=== PATIENT | male | born 1935 | race Caucasian/White ===

== ENCOUNTER 2017-12-22 14:37 | Emergency (ER) | payer MEDICARE, OTHER ==
[2017-12-22 17:20] LABS: ADD MAN DIFF? NO
[2017-12-22 17:21] LABS: WHITE BLOOD COUNT 9.4 10^3/ul (4.8-10.8)
[2017-12-22 17:21] LABS: ABNORMAL IP MESSAGE 1; BASOPHIL # 0.1 10^3/ul (0.0-0.1); BASOPHILS % 0.7 % (0.0-2.0); EOSINOPHILS # 0.2 10^3/ul (0.0-0.5); EOSINOPHILS % 1.7 % (0.0-7.0); HEMATOCRIT 29.1 % (42.0-52.0); HEMOGLOBIN 7.9 g/dl (14.0-18.0); LYMPHOCYTES # 2.2 10^3/ul (0.8-2.9); LYMPHOCYTES % 23.2 % (15.0-51.0); MEAN CORPUSCULAR HEMOGLOBIN 19.1 pg (29.0-33.0); MEAN CORPUSCULAR HGB CONC 27.1 g/dl (32.0-37.0); MEAN CORPUSCULAR VOLUME 70.5 fl (82.0-101.0); MEAN PLATELET VOLUME 9.4 fl (7.4-10.4); MONOCYTE # 0.8 10^3/ul (0.3-0.9); MONOCYTES % 8.6 % (0.0-11.0); NEUTROPHIL # 6.1 10^3/ul (1.6-7.5); NEUTROPHILS % 65.4 % (39.0-77.0); PLATELET COUNT 324 10^3/UL (140-415); POSITIVE DIFF @See below; RED BLOOD COUNT 4.13 10^6/ul (4.70-6.10); RED CELL DISTRIBUTION WIDTH 21.8 % (11.5-14.5)
[2017-12-22] MEDS: CEFTRIAXONE 1 GM/50 ML (PMX) 50 ML IVPB (17:26)
[2017-12-22 17:41] LABS: ALANINE AMINOTRANSFERASE 23 IU/L (13-69); ALBUMIN/GLOBULIN RATIO 1.08; ALKALINE PHOSPHATASE 70 IU/L (42-121); ANION GAP 20 (8-16); ASPARTATE AMINO TRANSFERASE 36 IU/L (15-46); BILIRUBIN,INDIRECT 0.2 mg/dl (0-1.1); BILIRUBIN,TOTAL 0.2 mg/dl (0.2-1.3); BLOOD UREA NITROGEN 26 mg/dl (7-20); CALCIUM 9.1 mg/dl (8.4-10.2); CARBON DIOXIDE 23 mmol/L (21-31); CHLORIDE 110 mmol/L (97-110); CREATININE 1.45 mg/dl (0.61-1.24); GLUCOSE 160 mg/dl (70-220); SODIUM 148 mmol/L (135-144); TOTAL PROTEIN 7.7 g/dl (6.1-8.1)
[2017-12-22 17:46] LABS: POTASSIUM 5.4 mmol/L (3.5-5.1)
[2017-12-22] MEDS: SOD CHLORIDE 0.9% 500 ML IV (18:50)
== END 2017-12-22 21:56 | disposition home or self-care (01) ==
LOC: FTE 14:37
DX: E11.621 Type 2 diabetes mellitus with foot ulcer (principal); L97.519 Non-pressure chronic ulcer of other part of right foot with unspecified severity; I73.9 Peripheral vascular disease, unspecified; I10 Essential (primary) hypertension; I25.10 Atherosclerotic heart disease of native coronary artery without angina pectoris; J45.909 Unspecified asthma, uncomplicated; I50.9 Heart failure, unspecified; Z79.4 Long term (current) use of insulin; Z87.891 Personal history of nicotine dependence
CPT/HCPCS: 73630; 80053; 85025; 93926; 96365; 96366; 99285-25

== ENCOUNTER 2018-01-06 13:58 | Inpatient (IN) | payer MEDICARE, OTHER ==
[2018-01-06 14:56] LABS: ADD MAN DIFF? NO
[2018-01-06 15:06] LABS: ABNORMAL IP MESSAGE 1; BASOPHIL # 0.1 10^3/ul (0.0-0.1); BASOPHILS % 0.8 % (0.0-2.0); EOSINOPHILS # 0.2 10^3/ul (0.0-0.5); EOSINOPHILS % 2.3 % (0.0-7.0); HEMATOCRIT 28.1 % (42.0-52.0); HEMOGLOBIN 7.6 g/dl (14.0-18.0); LYMPHOCYTES # 1.6 10^3/ul (0.8-2.9); LYMPHOCYTES % 22.4 % (15.0-51.0); MEAN CORPUSCULAR HEMOGLOBIN 18.8 pg (29.0-33.0); MEAN CORPUSCULAR VOLUME 69.6 fl (82.0-101.0); MEAN PLATELET VOLUME 9.2 fl (7.4-10.4); MONOCYTE # 0.6 10^3/ul (0.3-0.9); MONOCYTES % 8.2 % (0.0-11.0); NEUTROPHIL # 4.8 10^3/ul (1.6-7.5); NEUTROPHILS % 65.8 % (39.0-77.0); NUCLEATED RED BLOOD CELLS% 0.3 /100WBC (0.0-0.0); PLATELET COUNT 296 10^3/UL (140-415); POSITIVE DIFF @See below; RED BLOOD COUNT 4.04 10^6/ul (4.70-6.10); RED CELL DISTRIBUTION WIDTH 21.1 % (11.5-14.5)
[2018-01-06 15:06] LABS: WHITE BLOOD COUNT 7.3 10^3/ul (4.8-10.8)
[2018-01-06] MEDS: SOD CHLORIDE 0.9% 1,000 ML IV (15:07)
[2018-01-06 15:08] LABS: ADD UMIC NO; UR ASCORBIC ACID NEGATIVE (NEGATIVE); UR BILIRUBIN (Dip) NEGATIVE (NEGATIVE); UR BLOOD (Dip) NEGATIVE (NEGATIVE); UR CLARITY CLEAR (CLEAR); UR COLOR STRAW (YELLOW); UR GLUCOSE (Dip) 3+ mg/dL (NEGATIVE); UR KETONES (Dip) NEGATIVE (NEGATIVE); UR LEUKOCYTE ESTERASE (Dip) NEGATIVE Leu/ul (NEGATIVE); UR NITRITE (Dip) NEGATIVE (NEGATIVE); UR TOTAL PROTEIN (Dip) NEGATIVE (NEGATIVE); UR UROBILINOGEN (Dip) NEGATIVE (NEGATIVE)
[2018-01-06 15:22] LABS: ANION GAP 13 (8-16); BLOOD UREA NITROGEN 20 mg/dl (7-20); CARBON DIOXIDE 23 mmol/L (21-31); CHLORIDE 110 mmol/L (97-110); CREATININE 1.72 mg/dl (0.61-1.24); GLUCOSE 318 mg/dl (70-220); POTASSIUM 4.5 mmol/L (3.5-5.1)
[2018-01-06 15:23] LABS: INR 1.64; PROTIME 19.8 Sec (11.9-14.9); PT RATIO 1.5
[2018-01-06 15:24] LABS: PARTIAL THROMBOPLASTIN TIME 50.6 Sec (25.0-35.0)
[2018-01-06 15:26] LABS: SODIUM 141 mmol/L (135-144)
[2018-01-06] MEDS: PIPER-TAZO 3.375 GM IV (PMX) 100 ML IVPB (15:57)
[2018-01-06] MEDS: VANCOMYCIN 1 GM (PMX) 250 ML IVPB (16:43)
[2018-01-06] MEDS: morphine 2 MG INJ IV (17:38)
[2018-01-06] MEDS ORDERED: HYDROCODONE/APAP (5/325) TAB PO (18:00)
[2018-01-06] MEDS ORDERED: morphine 2 MG INJ IV (18:00)
[2018-01-06] MEDS ORDERED: DEXTROSE 50% 50 ML SYRINGE IV ×2 (18:00)
[2018-01-06] MEDS: PANTOPRAZOLE (EC) 40 MG TAB PO (18:00)
[2018-01-06] MEDS ORDERED: DOCUSATE SODIUM 100 MG CAP PO (18:00)
[2018-01-06] MEDS ORDERED: NACL 0.9% 3 ML SYG IV (18:00)
[2018-01-06] MEDS ORDERED: ACETAMINOPHEN 325 MG TAB PO (18:00)
[2018-01-06] MEDS ORDERED: GLUCOSE GEL 15 GRAM TUBE BUCCAL (18:00)
[2018-01-06] MEDS ORDERED: MAGNESIUM HYDROXIDE 30ML CUP PO (18:00)
[2018-01-06] MEDS ORDERED: ONDANSETRON 4 MG INJ IV (18:00)
[2018-01-06] MEDS ORDERED: GLUCOSE GEL 15 GRAM TUBE PO ×2 (18:00)
[2018-01-06] MEDS ORDERED: GLUCAGON 1 MG INJ IM (18:00)
[2018-01-06 18:20] LABS: HEMOGLOBIN A1C 8.5 % (0-5.9)
[2018-01-06] MEDS: PIPER-TAZO 2.25 GM (PMX) 50 ML IVPB (22:52)
[2018-01-06] MEDS: ATORVASTATIN 40 MG TAB PO (22:52)
[2018-01-06] MEDS: DEXTROSE 5%-0.45% NACL 1,000 ML IV (22:52)
[2018-01-06] MEDS: DOCUSATE SODIUM 250 MG CAP PO (22:53)
[2018-01-06] MEDS: INSULIN GLARGINE [LANtus] 3 ML PEN SC (22:55)
[2018-01-06] MEDS: INSULIN ASPART [NOVOLOG] 3 ML PEN SC (22:58)
[2018-01-07 06:04] LABS: ADD MAN DIFF? NO
[2018-01-07 06:05] LABS: WHITE BLOOD COUNT 7.2 10^3/ul (4.8-10.8)
[2018-01-07 06:05] LABS: ABNORMAL IP MESSAGE 1; BASOPHIL # 0.1 10^3/ul (0.0-0.1); BASOPHILS % 0.8 % (0.0-2.0); EOSINOPHILS # 0.2 10^3/ul (0.0-0.5); EOSINOPHILS % 2.8 % (0.0-7.0); HEMATOCRIT 25.8 % (42.0-52.0); HEMOGLOBIN 7.1 g/dl (14.0-18.0); LYMPHOCYTES % 27.5 % (15.0-51.0); MEAN CORPUSCULAR HEMOGLOBIN 19.3 pg (29.0-33.0); MEAN CORPUSCULAR HGB CONC 27.5 g/dl (32.0-37.0); MEAN CORPUSCULAR VOLUME 70.1 fl (82.0-101.0); MEAN PLATELET VOLUME 9.8 fl (7.4-10.4); MONOCYTE # 0.7 10^3/ul (0.3-0.9); MONOCYTES % 9.9 % (0.0-11.0); NEUTROPHIL # 4.2 10^3/ul (1.6-7.5); NEUTROPHILS % 58.6 % (39.0-77.0); PLATELET COUNT 276 10^3/UL (140-415); POSITIVE DIFF @See below; RED BLOOD COUNT 3.68 10^6/ul (4.70-6.10); RED CELL DISTRIBUTION WIDTH 20.8 % (11.5-14.5)
[2018-01-07] MEDS: PIPER-TAZO 2.25 GM (PMX) 50 ML IVPB ×3 (06:26→22:50)
[2018-01-07] MEDS: PANTOPRAZOLE (EC) 40 MG TAB PO ×2 (06:26→17:05)
[2018-01-07 06:27] LABS: ALANINE AMINOTRANSFERASE 16 IU/L (13-69); ALKALINE PHOSPHATASE 57 IU/L (42-121); ANION GAP 9 (8-16); ASPARTATE AMINO TRANSFERASE 32 IU/L (15-46); BILIRUBIN,INDIRECT 0.2 mg/dl (0-1.1); BILIRUBIN,TOTAL 0.2 mg/dl (0.2-1.3); BLOOD UREA NITROGEN 19 mg/dl (7-20); CARBON DIOXIDE 24 mmol/L (21-31); CHLORIDE 115 mmol/L (97-110); CREATININE 1.42 mg/dl (0.61-1.24); GLUCOSE 91 mg/dl (70-220); MAGNESIUM 2.1 mg/dl (1.7-2.5); POTASSIUM 3.9 mmol/L (3.5-5.1); SODIUM 144 mmol/L (135-144)
[2018-01-07] MEDS: DEXTROSE 5%-0.45% NACL 1,000 ML IV ×2 (07:20→21:48)
[2018-01-07] MEDS: INSULIN ASPART [NOVOLOG] 3 ML PEN SC ×4 (08:15→21:00)
[2018-01-07] MEDS: FLUTICASONE/VILANTEROL 200-25 INH DEVICE INH (08:21)
[2018-01-07] MEDS: DOCUSATE SODIUM 250 MG CAP PO ×2 (08:21→21:00)
[2018-01-07] MEDS: NIFEdipine (XL) 30 MG TAB PO (08:22)
[2018-01-07] MEDS: FERROUS SULFATE (EC) 325 MG TAB PO (08:22)
[2018-01-07 14:39] LABS: IMMEDIATE SPIN CROSSMATCH 1 1
[2018-01-07] MEDS ORDERED: morphine LIQ (10 MG/5 ML) CUP PO (15:00)
[2018-01-07] MEDS ORDERED: PROPOFOL 20 ML (19:15)
[2018-01-07] MEDS ORDERED: CEFAZOLIN 1 GM INJ (19:15)
[2018-01-07] MEDS: LIDOCAINE 1% (MPF) 30 ML INJ (19:20)
[2018-01-07] MEDS ORDERED: MIDAZOLAM 1 MG/ML 2 ML INJ IV (19:30)
[2018-01-07] MEDS ORDERED: EPHEDrine SULFATE 50 MG/5 ML SYG IV ×2 (19:30→20:00)
[2018-01-07] MEDS ORDERED: DIPHENHYDRAMINE 50 MG INJ IV ×2 (19:30→20:00)
[2018-01-07] MEDS ORDERED: ONDANSETRON 4 MG INJ IV ×2 (19:30→20:00)
[2018-01-07] MEDS ORDERED: FENTAnyl 50 MCG/ML VIAL IV ×5 (19:30→20:00)
[2018-01-07] MEDS ORDERED: MEPERIDINE 25 MG INJ IV ×2 (19:30→20:00)
[2018-01-07] MEDS ORDERED: OXYCODONE/ACETAMINOPHEN (5/325) TAB PO ×3 (19:30→20:00)
[2018-01-07] MEDS ORDERED: hydrALAzine 20 MG INJ IV ×2 (19:30→20:00)
[2018-01-07] MEDS ORDERED: LABETALOL HCL 20MG INJ IV ×2 (19:30→20:00)
[2018-01-07] MEDS ORDERED: METOCLOPRAMIDE 10 MG INJ IV ×2 (19:30→20:00)
[2018-01-07] MEDS ORDERED: METOCLOPRAMIDE 10 MG INJ (19:42)
[2018-01-07] MEDS ORDERED: DEXAMETHASONE 4 MG/ML 1 ML INJ (19:42)
[2018-01-07] MEDS ORDERED: ONDANSETRON 4 MG INJ (19:42)
[2018-01-07] MEDS: DEXAMETHASONE 4 MG/ML 1 ML INJ (19:50)
[2018-01-07] MEDS: BUPIVACAINE 0.5% (SDV) 30 ML INJ (19:50)
[2018-01-07] MEDS ORDERED: HYDROmorphONE 1 MG/5 ML IV SYRINGE IV ×2 (20:00)
[2018-01-07] MEDS: ATORVASTATIN 40 MG TAB PO (21:00)
[2018-01-07] MEDS: INSULIN GLARGINE [LANtus] 3 ML PEN SC (21:53)
[2018-01-08] MEDS: PIPER-TAZO 2.25 GM (PMX) 50 ML IVPB ×3 (05:42→21:22)
[2018-01-08] MEDS: PANTOPRAZOLE (EC) 40 MG TAB PO ×2 (05:42→18:43)
[2018-01-08 06:50] LABS: ALBUMIN 3.4 g/dl (3.3-4.9); ANION GAP 10 (8-16); BLOOD UREA NITROGEN 17 mg/dl (7-20); CALCIUM 9.2 mg/dl (8.4-10.2); CARBON DIOXIDE 23 mmol/L (21-31); CHLORIDE 111 mmol/L (97-110); CREATININE 1.32 mg/dl (0.61-1.24); GLUCOSE 245 mg/dl (70-220); MAGNESIUM 1.9 mg/dl (1.7-2.5); PHOSPHORUS 4.1 mg/dl (2.5-4.9); POTASSIUM 4.4 mmol/L (3.5-5.1); SODIUM 140 mmol/L (135-144)
[2018-01-08] MEDS: DOCUSATE SODIUM 250 MG CAP PO ×2 (09:29→21:23)
[2018-01-08] MEDS: NIFEdipine (XL) 30 MG TAB PO (09:30)
[2018-01-08] MEDS: FLUTICASONE/VILANTEROL 200-25 INH DEVICE INH (09:30)
[2018-01-08] MEDS: FERROUS SULFATE (EC) 325 MG TAB PO (09:30)
[2018-01-08] MEDS: INSULIN ASPART [NOVOLOG] 3 ML PEN SC ×4 (09:36→21:29)
[2018-01-08] MEDS: DEXTROSE 5%-0.45% NACL 1,000 ML IV (10:00)
[2018-01-08] MEDS: ATORVASTATIN 40 MG TAB PO (21:23)
[2018-01-08] MEDS: INSULIN GLARGINE [LANtus] 3 ML PEN SC (21:30)
[2018-01-09] MEDS: PIPER-TAZO 2.25 GM (PMX) 50 ML IVPB ×2 (05:49→13:43)
[2018-01-09] MEDS: PANTOPRAZOLE (EC) 40 MG TAB PO (05:49)
[2018-01-09 05:52] LABS: ABNORMAL IP MESSAGE 1; ADD MAN DIFF? NO; BASOPHIL # 0.1 10^3/ul (0.0-0.1); BASOPHILS % 0.7 % (0.0-2.0); EOSINOPHILS # 0.1 10^3/ul (0.0-0.5); EOSINOPHILS % 0.6 % (0.0-7.0); HEMATOCRIT 29.2 % (42.0-52.0); HEMOGLOBIN 8.4 g/dl (14.0-18.0); LYMPHOCYTES # 2.5 10^3/ul (0.8-2.9); LYMPHOCYTES % 25.8 % (15.0-51.0); MEAN CORPUSCULAR HEMOGLOBIN 20.1 pg (29.0-33.0); MEAN CORPUSCULAR HGB CONC 28.8 g/dl (32.0-37.0); MEAN PLATELET VOLUME 9.6 fl (7.4-10.4); MONOCYTE # 0.9 10^3/ul (0.3-0.9); MONOCYTES % 9.6 % (0.0-11.0); NEUTROPHIL # 6.1 10^3/ul (1.6-7.5); PLATELET COUNT 317 10^3/UL (140-415); POSITIVE DIFF @See below; RED BLOOD COUNT 4.17 10^6/ul (4.70-6.10); RED CELL DISTRIBUTION WIDTH 21.2 % (11.5-14.5)
[2018-01-09 05:52] LABS: WHITE BLOOD COUNT 9.7 10^3/ul (4.8-10.8)
[2018-01-09 06:16] LABS: ANION GAP 10 (8-16); BLOOD UREA NITROGEN 26 mg/dl (7-20); CALCIUM 9.5 mg/dl (8.4-10.2); CARBON DIOXIDE 26 mmol/L (21-31); CHLORIDE 111 mmol/L (97-110); CREATININE 1.39 mg/dl (0.61-1.24); GLUCOSE 89 mg/dl (70-220); POTASSIUM 4.2 mmol/L (3.5-5.1); SODIUM 143 mmol/L (135-144)
[2018-01-09 06:19] LABS: ALBUMIN 3.2 g/dl (3.3-4.9); ANION GAP 9 (8-16); BLOOD UREA NITROGEN 25 mg/dl (7-20); CALCIUM 9.5 mg/dl (8.4-10.2); CARBON DIOXIDE 26 mmol/L (21-31); CHLORIDE 112 mmol/L (97-110); CREATININE 1.44 mg/dl (0.61-1.24); GLUCOSE 93 mg/dl (70-220); PHOSPHORUS 3.2 mg/dl (2.5-4.9); POTASSIUM 3.9 mmol/L (3.5-5.1); SODIUM 143 mmol/L (135-144)
[2018-01-09] MEDS: HYDROCODONE/APAP (5/325) TAB PO ×2 (06:54→15:13)
[2018-01-09] MEDS: INSULIN ASPART [NOVOLOG] 3 ML PEN SC ×2 (08:15→12:15)
[2018-01-09] MEDS: DOCUSATE SODIUM 250 MG CAP PO (08:25)
[2018-01-09] MEDS: NIFEdipine (XL) 30 MG TAB PO (08:25)
[2018-01-09] MEDS: FERROUS SULFATE (EC) 325 MG TAB PO (08:26)
[2018-01-09] MEDS: FLUTICASONE/VILANTEROL 200-25 INH DEVICE INH (08:26)
== END 2018-01-09 16:35 | disposition home health service (06) | DRG 256 ==
LOC: E/R 13:58 → MS2 19:53
PROC: 0Y6P0Z0 Detachment at Right 1st Toe, Complete, Open Approach (ICD-10-PCS; principal; 2018-01-07 18:30)
PROC: 0Y6R0Z0 Detachment at Right 2nd Toe, Complete, Open Approach (ICD-10-PCS; 2018-01-07 18:30)
PROC: 30233N1 Transfusion of Nonautologous Red Blood Cells into Peripheral Vein, Percutaneous Approach (ICD-10-PCS; 2018-01-07 19:15)
DX: E11.52 Type 2 diabetes mellitus with diabetic peripheral angiopathy with gangrene (principal); N17.9 Acute kidney failure, unspecified; E11.65 Type 2 diabetes mellitus with hyperglycemia; I25.10 Atherosclerotic heart disease of native coronary artery without angina pectoris; Z95.1 Presence of aortocoronary bypass graft; I48.91 Unspecified atrial fibrillation; I12.9 Hypertensive chronic kidney disease with stage 1 through stage 4 chronic kidney disease, or unspecified chronic kidney disease; E11.22 Type 2 diabetes mellitus with diabetic chronic kidney disease; D63.1 Anemia in chronic kidney disease; E78.5 Hyperlipidemia, unspecified; N18.3 Chronic kidney disease, stage 3 (moderate); Z79.84 Long term (current) use of oral hypoglycemic drugs; Z79.02 Long term (current) use of antithrombotics/antiplatelets; Z79.4 Long term (current) use of insulin; Z95.810 Presence of automatic (implantable) cardiac defibrillator
CPT/HCPCS: 36415; 36430; 80048; 80053; 80069; 81003; 82962; 83036; 83735; 85025; 85610; 85730; 86850; 86900; 86901; 86920; 88302; 88311; 96374; 96375; 99285-25

== ENCOUNTER 2018-02-19 12:21 | Inpatient (IN) | payer MEDICARE, OTHER ==
[2018-02-19] MEDS ORDERED: ONDANSETRON 4 MG INJ IV ×2 (15:30→17:00)
[2018-02-19] MEDS ORDERED: ACETAMINOPHEN 325 MG TAB PO ×2 (15:30→17:00)
[2018-02-19] MEDS: PIPER-TAZO 3.375 GM IV (PMX) 100 ML IVPB (15:53)
[2018-02-19] MEDS: SODIUM CHLORIDE 0.9% 1L BAG IV* (15:53)
[2018-02-19 16:22] LABS: ALANINE AMINOTRANSFERASE 26 IU/L (13-69); ALBUMIN/GLOBULIN RATIO 1.11; ALKALINE PHOSPHATASE 66 IU/L (42-121); ANION GAP 13 (8-16); ASPARTATE AMINO TRANSFERASE 22 IU/L (15-46); BILIRUBIN,INDIRECT 0.4 mg/dl (0-1.1); BILIRUBIN,TOTAL 0.4 mg/dl (0.2-1.3); BLOOD UREA NITROGEN 24 mg/dl (7-20); CARBON DIOXIDE 18 mmol/L (21-31); CHLORIDE 121 mmol/L (97-110); CREATININE 1.57 mg/dl (0.61-1.24); GLUCOSE 92 mg/dl (70-220); INR 1.56; POTASSIUM 5.8 mmol/L (3.5-5.1); PT RATIO 1.5; SODIUM 146 mmol/L (135-144); TOTAL PROTEIN 7.6 g/dl (6.1-8.1)
[2018-02-19 16:23] LABS: PARTIAL THROMBOPLASTIN TIME 54.1 Sec (25.0-35.0)
[2018-02-19 16:24] LABS: LACTIC ACID 0.8 mmol/L (0.5-2.0)
[2018-02-19 16:33] LABS: TROPONIN-I 0.013 ng/ml (0.000-0.120)
[2018-02-19] MEDS: VANCOMYCIN 1 GM (PMX) 250 ML IVPB (16:34)
[2018-02-19 16:35] LABS: WHITE BLOOD COUNT 7.3 10^3/ul (4.8-10.8)
[2018-02-19 16:35] LABS: ABNORMAL IP MESSAGE 1; HEMOGLOBIN 10.7 g/dl (14.0-18.0); MEAN CORPUSCULAR HGB CONC 29.8 g/dl (32.0-37.0); MEAN CORPUSCULAR VOLUME 82.2 fl (82.0-101.0); MEAN PLATELET VOLUME 9.7 fl (7.4-10.4); PLATELET COUNT 297 10^3/UL (140-415); POSITIVE DIFF @See below; RED BLOOD COUNT 4.37 10^6/ul (4.70-6.10)
[2018-02-19 16:38] LABS: ADD MAN DIFF? YES; HEMATOCRIT 35.9 % (42.0-52.0); MEAN CORPUSCULAR HEMOGLOBIN 24.5 pg (29.0-33.0)
[2018-02-19 16:56] LABS: ADD UMIC YES; UR ASCORBIC ACID NEGATIVE (NEGATIVE); UR BILIRUBIN (Dip) NEGATIVE (NEGATIVE); UR BLOOD (Dip) 1+ mg/dL (NEGATIVE); UR CLARITY SLIGHTLY CLOUDY (CLEAR); UR COLOR YELLOW (YELLOW); UR GLUCOSE (Dip) 3+ mg/dL (NEGATIVE); UR KETONES (Dip) NEGATIVE (NEGATIVE); UR LEUKOCYTE ESTERASE (Dip) 2+ Leu/ul (NEGATIVE); UR NITRITE (Dip) NEGATIVE (NEGATIVE); UR RBC 2 /HPF (0-5); UR SPECIFIC GRAVITY (Dip) 1.012 (1.003-1.030); UR TOTAL PROTEIN (Dip) NEGATIVE (NEGATIVE); UR UROBILINOGEN (Dip) NEGATIVE (NEGATIVE); UR WBC 10 /HPF (0-5)
[2018-02-19] MEDS ORDERED: NACL 0.9% 3 ML SYG IV (17:00)
[2018-02-19] MEDS ORDERED: DOCUSATE SODIUM 100 MG CAP PO (17:00)
[2018-02-19 17:30] LABS: ANISOCYTOSIS 1+ (0-0); BAND NEUTROPHILS #M 0.5 10^3/ul (0.0-0.6); BAND NEUTROPHILS % (M) 7 % (0-4); EOSINOPHILS % (M) 2 % (0-7); GIANT THROMBO% (M) 1 % (0-0); HYPOCHROMASIA 1+ (0-0); LYMPHOCYTES #M 0.2 10^3/ul (0.8-2.9); LYMPHOCYTES % (M) 4 % (15-51); METAMYELOCYTES %M 1 % (0-0); MICROCYTOSIS 1+ (0-0); MONOCYTE #M 1.6 10^3/ul (0.3-0.9); MONOCYTES % (M) 22 % (0-11); MYELOCYTES % (M) 1 % (0-0); OVALOCYTES 1+ (0-0); PLATELET ESTIMATE NORMAL; POIKILOCYTOSIS 2+ (0-0); POLYCHROMASIA 1+ (0-0); REACTIVE LYMPHOCYTES #M 0.4 10^3/ul (0.0-0.0); REACTIVE LYMPHOCYTES% (M) 6 % (0-0); SEG NEUT #M 4.2 10^3/ul (1.6-7.5); SEGMENTED NEUTROPHILS (M) % 57 % (39-77); SMUDGE%M 3 % (0-0)
[2018-02-19] MEDS ORDERED: RIVAROXABAN 20 MG TABLET PO (18:00)
[2018-02-19] MEDS: PANTOPRAZOLE (EC) 40 MG TAB PO (18:32)
[2018-02-19] MEDS ORDERED: DEXTROSE 50% 50 ML SYRINGE IV ×2 (19:30)
[2018-02-19] MEDS ORDERED: GLUCOSE GEL 15 GRAM TUBE BUCCAL (19:30)
[2018-02-19] MEDS ORDERED: GLUCOSE GEL 15 GRAM TUBE PO ×2 (19:30)
[2018-02-19] MEDS ORDERED: GLUCAGON 1 MG INJ IM (19:30)
[2018-02-19 19:48] LABS: LACTIC ACID 0.7 mmol/L (0.5-2.0)
[2018-02-19] MEDS: INSULIN ASPART [NOVOLOG] 3 ML PEN SC (21:00)
[2018-02-19] MEDS: ATORVASTATIN 80 MG TAB PO (22:21)
[2018-02-19] MEDS: RANITIDINE 150 MG TAB PO (22:21)
[2018-02-19] MEDS: HEPARIN 5,000 UNIT/0.5 ML VIAL SC (22:30)
[2018-02-19] MEDS: INSULIN GLARGINE [LANTus] (100 UNITS/ML) SYG SC (22:44)
[2018-02-19 23:23] LABS: LACTIC ACID 1.1 mmol/L (0.5-2.0)
[2018-02-20] MEDS: PIPER-TAZO 3.375 GM IV (PMX) 100 ML IVPB ×4 (00:29→18:00)
[2018-02-20] MEDS: ACCU-CHEK XX ×2 (02:00→22:51)
[2018-02-20 06:53] LABS: ADD MAN DIFF? NO
[2018-02-20 06:55] LABS: ABNORMAL IP MESSAGE 1; BASOPHIL # 0.1 10^3/ul (0.0-0.1); BASOPHILS % 0.9 % (0.0-2.0); EOSINOPHILS # 0.2 10^3/ul (0.0-0.5); EOSINOPHILS % 3.1 % (0.0-7.0); HEMATOCRIT 33.7 % (42.0-52.0); HEMOGLOBIN 9.9 g/dl (14.0-18.0); LYMPHOCYTES # 1.2 10^3/ul (0.8-2.9); LYMPHOCYTES % 18.1 % (15.0-51.0); MEAN CORPUSCULAR HEMOGLOBIN 23.8 pg (29.0-33.0); MEAN CORPUSCULAR HGB CONC 29.4 g/dl (32.0-37.0); MEAN PLATELET VOLUME 9.4 fl (7.4-10.4); MONOCYTE # 0.6 10^3/ul (0.3-0.9); MONOCYTES % 9.3 % (0.0-11.0); NEUTROPHIL # 4.4 10^3/ul (1.6-7.5); NEUTROPHILS % 67.5 % (39.0-77.0); PLATELET COUNT 286 10^3/UL (140-415); POSITIVE DIFF @See below; RED BLOOD COUNT 4.16 10^6/ul (4.70-6.10)
[2018-02-20 06:55] LABS: WHITE BLOOD COUNT 6.5 10^3/ul (4.8-10.8)
[2018-02-20 07:15] LABS: ANION GAP 13 (8-16); BLOOD UREA NITROGEN 20 mg/dl (7-20); CALCIUM 9.7 mg/dl (8.4-10.2); CARBON DIOXIDE 18 mmol/L (21-31); CHLORIDE 119 mmol/L (97-110); CREATININE 1.43 mg/dl (0.61-1.24); GLUCOSE 52 mg/dl (70-220); POTASSIUM 4.8 mmol/L (3.5-5.1); SODIUM 145 mmol/L (135-144)
[2018-02-20] MEDS: INSULIN ASPART [NOVOLOG] 3 ML PEN SC ×4 (07:55→21:00)
[2018-02-20] MEDS: PANTOPRAZOLE (EC) 40 MG TAB PO ×2 (08:19→18:09)
[2018-02-20] MEDS: FERROUS SULFATE (EC) 325 MG TAB PO (08:20)
[2018-02-20] MEDS: COLLAGENASE 5 GM (UD JAR) TOP (08:20)
[2018-02-20] MEDS: NIFEdipine (XL) 30 MG TAB PO (08:20)
[2018-02-20] MEDS: TAMSULOSIN (SR) 0.4 MG CAP PO (08:20)
[2018-02-20] MEDS: HEPARIN 5,000 UNIT/0.5 ML VIAL SC ×3 (08:29→22:45)
[2018-02-20] MEDS: ARFORMOTEROL TARTRATE 15MCG/2 ML AMP INH ×2 (09:02→19:17)
[2018-02-20] MEDS: BUDESONIDE (NEB) 0.5MG/2ML AMP INH ×2 (09:02→19:17)
[2018-02-20] MEDS ORDERED: VANCOMYCIN IV PER PHARMACY XX (16:00)
[2018-02-20] MEDS: VANCOMYCIN 1 GM 250 ML IVPB (19:41)
[2018-02-20] MEDS: oxyCODONE 5 MG TAB PO (20:11)
[2018-02-20] MEDS: RANITIDINE 150 MG TAB PO (22:31)
[2018-02-20] MEDS: ATORVASTATIN 80 MG TAB PO (22:32)
[2018-02-20] MEDS: INSULIN GLARGINE [LANTus] (100 UNITS/ML) SYG SC (22:44)
[2018-02-21] MEDS: PIPER-TAZO 3.375 GM IV (PMX) 100 ML IVPB ×3 (00:27→12:01)
[2018-02-21] MEDS: INSULIN ASPART [NOVOLOG] 3 ML PEN SC ×4 (07:55→20:22)
[2018-02-21] MEDS: TAMSULOSIN (SR) 0.4 MG CAP PO (08:28)
[2018-02-21] MEDS: COLLAGENASE 5 GM (UD JAR) TOP (08:28)
[2018-02-21] MEDS: FERROUS SULFATE (EC) 325 MG TAB PO (08:28)
[2018-02-21] MEDS: PANTOPRAZOLE (EC) 40 MG TAB PO ×2 (08:28→16:57)
[2018-02-21] MEDS: NIFEdipine (XL) 30 MG TAB PO (08:29)
[2018-02-21] MEDS: HEPARIN 5,000 UNIT/0.5 ML VIAL SC ×3 (08:39→20:23)
[2018-02-21] MEDS: ARFORMOTEROL TARTRATE 15MCG/2 ML AMP INH ×2 (10:15→21:58)
[2018-02-21] MEDS: BUDESONIDE (NEB) 0.5MG/2ML AMP INH ×2 (10:16→21:42)
[2018-02-21 11:15] LABS: ADD MAN DIFF? NO
[2018-02-21 11:18] LABS: ABNORMAL IP MESSAGE 1; BASOPHIL # 0.1 10^3/ul (0.0-0.1); BASOPHILS % 0.7 % (0.0-2.0); EOSINOPHILS # 0.1 10^3/ul (0.0-0.5); EOSINOPHILS % 1.4 % (0.0-7.0); HEMATOCRIT 35.8 % (42.0-52.0); LYMPHOCYTES # 1.2 10^3/ul (0.8-2.9); LYMPHOCYTES % 17.3 % (15.0-51.0); MEAN CORPUSCULAR HEMOGLOBIN 24.7 pg (29.0-33.0); MEAN CORPUSCULAR HGB CONC 30.7 g/dl (32.0-37.0); MEAN CORPUSCULAR VOLUME 80.4 fl (82.0-101.0); MEAN PLATELET VOLUME 9.3 fl (7.4-10.4); MONOCYTE # 0.5 10^3/ul (0.3-0.9); MONOCYTES % 7.6 % (0.0-11.0); NEUTROPHILS % 72.1 % (39.0-77.0); PLATELET COUNT 300 10^3/UL (140-415); POSITIVE DIFF @See below; RED BLOOD COUNT 4.45 10^6/ul (4.70-6.10)
[2018-02-21 11:42] LABS: ANION GAP 13 (8-16); BLOOD UREA NITROGEN 17 mg/dl (7-20); CALCIUM 9.7 mg/dl (8.4-10.2); CARBON DIOXIDE 19 mmol/L (21-31); CHLORIDE 114 mmol/L (97-110); GLUCOSE 160 mg/dl (70-220); POTASSIUM 4.8 mmol/L (3.5-5.1); SODIUM 141 mmol/L (135-144)
[2018-02-21] MEDS: hydrALAzine 20 MG INJ IV (16:58)
[2018-02-21] MEDS: VANCOMYCIN 1 GM 250 ML IVPB (19:54)
[2018-02-21] MEDS: INSULIN GLARGINE [LANTus] (100 UNITS/ML) SYG SC (20:24)
[2018-02-21] MEDS: ATORVASTATIN 80 MG TAB PO (20:28)
[2018-02-21] MEDS: LOSARTAN 50 MG TAB PO (20:28)
[2018-02-21] MEDS: RANITIDINE 150 MG TAB PO (20:28)
[2018-02-21] MEDS: CEFEPIME 1GM/50 ML (PMX) 50 ML IVPB (22:22)
[2018-02-22] MEDS: ACCU-CHEK XX (02:00)
[2018-02-22 06:14] LABS: ADD MAN DIFF? NO
[2018-02-22 06:43] LABS: ABNORMAL IP MESSAGE 1; BASOPHIL # 0.1 10^3/ul (0.0-0.1); BASOPHILS % 0.7 % (0.0-2.0); EOSINOPHILS # 0.1 10^3/ul (0.0-0.5); EOSINOPHILS % 1.3 % (0.0-7.0); HEMATOCRIT 34.2 % (42.0-52.0); HEMOGLOBIN 10.4 g/dl (14.0-18.0); LYMPHOCYTES # 1.7 10^3/ul (0.8-2.9); LYMPHOCYTES % 24.9 % (15.0-51.0); MEAN CORPUSCULAR HEMOGLOBIN 24.5 pg (29.0-33.0); MEAN CORPUSCULAR HGB CONC 30.4 g/dl (32.0-37.0); MEAN CORPUSCULAR VOLUME 80.5 fl (82.0-101.0); MEAN PLATELET VOLUME 9.7 fl (7.4-10.4); MONOCYTE # 0.7 10^3/ul (0.3-0.9); MONOCYTES % 9.7 % (0.0-11.0); NEUTROPHIL # 4.2 10^3/ul (1.6-7.5); PLATELET COUNT 282 10^3/UL (140-415); POSITIVE DIFF @See below; RED BLOOD COUNT 4.25 10^6/ul (4.70-6.10)
[2018-02-22 06:43] LABS: WHITE BLOOD COUNT 6.7 10^3/ul (4.8-10.8)
[2018-02-22 06:44] LABS: ANION GAP 10 (8-16); BLOOD UREA NITROGEN 17 mg/dl (7-20); CALCIUM 9.7 mg/dl (8.4-10.2); CARBON DIOXIDE 23 mmol/L (21-31); CHLORIDE 114 mmol/L (97-110); CREATININE 1.41 mg/dl (0.61-1.24); GLUCOSE 100 mg/dl (70-220); POTASSIUM 4.5 mmol/L (3.5-5.1); SODIUM 142 mmol/L (135-144)
[2018-02-22] MEDS: INSULIN ASPART [NOVOLOG] 3 ML PEN SC ×4 (07:36→20:28)
[2018-02-22] MEDS: BUDESONIDE (NEB) 0.5MG/2ML AMP INH ×2 (08:22→20:36)
[2018-02-22] MEDS: ARFORMOTEROL TARTRATE 15MCG/2 ML AMP INH ×2 (08:27→20:36)
[2018-02-22] MEDS: NIFEdipine (XL) 30 MG TAB PO (08:30)
[2018-02-22] MEDS: LOSARTAN 50 MG TAB PO ×2 (08:30→20:11)
[2018-02-22] MEDS: COLLAGENASE 5 GM (UD JAR) TOP (08:31)
[2018-02-22] MEDS: PANTOPRAZOLE (EC) 40 MG TAB PO ×2 (08:31→17:34)
[2018-02-22] MEDS: FERROUS SULFATE (EC) 325 MG TAB PO (08:31)
[2018-02-22] MEDS: TAMSULOSIN (SR) 0.4 MG CAP PO (08:31)
[2018-02-22] MEDS: CEFEPIME 1GM/50 ML (PMX) 50 ML IVPB ×2 (08:31→22:31)
[2018-02-22] MEDS: HEPARIN 5,000 UNIT/0.5 ML VIAL SC ×3 (08:34→20:12)
[2018-02-22] MEDS: RANITIDINE 150 MG TAB PO (20:08)
[2018-02-22] MEDS: ATORVASTATIN 80 MG TAB PO (20:08)
[2018-02-22] MEDS: VANCOMYCIN 1 GM 250 ML IVPB (20:08)
[2018-02-22] MEDS: INSULIN GLARGINE [LANTus] (100 UNITS/ML) SYG SC (20:30)
[2018-02-23] MEDS: ACCU-CHEK XX (02:00)
[2018-02-23] MEDS: SOD CHLORIDE 0.9% 1,000 ML IV (05:00)
[2018-02-23 05:37] LABS: ADD MAN DIFF? NO
[2018-02-23 05:43] LABS: ABNORMAL IP MESSAGE 1; BASOPHILS % 0.5 % (0.0-2.0); EOSINOPHILS # 0.1 10^3/ul (0.0-0.5); EOSINOPHILS % 1.6 % (0.0-7.0); HEMATOCRIT 33.7 % (42.0-52.0); HEMOGLOBIN 10.3 g/dl (14.0-18.0); LYMPHOCYTES # 1.6 10^3/ul (0.8-2.9); LYMPHOCYTES % 19.8 % (15.0-51.0); MEAN CORPUSCULAR HEMOGLOBIN 24.5 pg (29.0-33.0); MEAN CORPUSCULAR HGB CONC 30.6 g/dl (32.0-37.0); MEAN PLATELET VOLUME 9.4 fl (7.4-10.4); MONOCYTE # 0.7 10^3/ul (0.3-0.9); MONOCYTES % 8.4 % (0.0-11.0); NEUTROPHIL # 5.5 10^3/ul (1.6-7.5); NEUTROPHILS % 69.2 % (39.0-77.0); PLATELET COUNT 243 10^3/UL (140-415); POSITIVE DIFF @See below; RED BLOOD COUNT 4.21 10^6/ul (4.70-6.10)
[2018-02-23 06:22] LABS: ANION GAP 10 (8-16); BLOOD UREA NITROGEN 22 mg/dl (7-20); CALCIUM 9.5 mg/dl (8.4-10.2); CARBON DIOXIDE 22 mmol/L (21-31); CHLORIDE 114 mmol/L (97-110); CREATININE 1.49 mg/dl (0.61-1.24); GLUCOSE 133 mg/dl (70-220); POTASSIUM 4.2 mmol/L (3.5-5.1); SODIUM 142 mmol/L (135-144)
[2018-02-23] MEDS: PANTOPRAZOLE (EC) 40 MG TAB PO ×2 (08:00→17:46)
[2018-02-23] MEDS: INSULIN ASPART [NOVOLOG] 3 ML PEN SC ×4 (08:15→21:38)
[2018-02-23] MEDS: ARFORMOTEROL TARTRATE 15MCG/2 ML AMP INH ×2 (08:55→19:53)
[2018-02-23] MEDS: BUDESONIDE (NEB) 0.5MG/2ML AMP INH ×2 (08:55→19:53)
[2018-02-23] MEDS: CEFEPIME 1GM/50 ML (PMX) 50 ML IVPB ×2 (08:59→21:27)
[2018-02-23] MEDS: TAMSULOSIN (SR) 0.4 MG CAP PO (09:04)
[2018-02-23] MEDS: FERROUS SULFATE (EC) 325 MG TAB PO (09:04)
[2018-02-23] MEDS: NIFEdipine (XL) 30 MG TAB PO (09:04)
[2018-02-23] MEDS: LOSARTAN 50 MG TAB PO ×2 (09:05→21:28)
[2018-02-23] MEDS: COLLAGENASE 5 GM (UD JAR) TOP (09:07)
[2018-02-23] MEDS: HEPARIN 5,000 UNIT/0.5 ML VIAL SC ×3 (09:25→21:38)
[2018-02-23] MEDS ORDERED: FENTAnyl 50 MCG/ML VIAL (10:09)
[2018-02-23] MEDS ORDERED: MIDAZOLAM 1 MG/ML 2 ML INJ (10:09)
[2018-02-23] MEDS ORDERED: HEPARIN 1000 UNITS/NS (A-LINE) 1,000 ML (10:30)
[2018-02-23] MEDS ORDERED: LIDOCAINE 1% (MDV) 10 ML INJ (10:30)
[2018-02-23] MEDS ORDERED: IODIXANOL LOCM 100 ML BTL (10:30)
[2018-02-23] MEDS: LACTATED RINGER'S 1,000 ML IV (12:56)
[2018-02-23] MEDS: VANCOMYCIN 1.5 GM in SOD CHLORIDE 0.9% 250 ML IVPB (17:46)
[2018-02-23] MEDS: ATORVASTATIN 80 MG TAB PO (21:28)
[2018-02-23] MEDS: RANITIDINE 150 MG TAB PO (21:28)
[2018-02-23] MEDS: INSULIN GLARGINE [LANTus] (100 UNITS/ML) SYG SC (21:38)
[2018-02-24] MEDS: ACCU-CHEK XX (02:00)
[2018-02-24 05:43] LABS: ADD MAN DIFF? NO
[2018-02-24 05:59] LABS: WHITE BLOOD COUNT 10.7 10^3/ul (4.8-10.8)
[2018-02-24 05:59] LABS: ABNORMAL IP MESSAGE 1; BASOPHILS % 0.4 % (0.0-2.0); EOSINOPHILS # 0.1 10^3/ul (0.0-0.5); EOSINOPHILS % 0.8 % (0.0-7.0); HEMATOCRIT 32.2 % (42.0-52.0); HEMOGLOBIN 9.7 g/dl (14.0-18.0); LYMPHOCYTES # 1.7 10^3/ul (0.8-2.9); LYMPHOCYTES % 15.6 % (15.0-51.0); MEAN CORPUSCULAR HEMOGLOBIN 24.3 pg (29.0-33.0); MEAN CORPUSCULAR HGB CONC 30.1 g/dl (32.0-37.0); MEAN CORPUSCULAR VOLUME 80.7 fl (82.0-101.0); MEAN PLATELET VOLUME 10.2 fl (7.4-10.4); MONOCYTE # 0.7 10^3/ul (0.3-0.9); MONOCYTES % 6.5 % (0.0-11.0); NEUTROPHIL # 8.2 10^3/ul (1.6-7.5); NEUTROPHILS % 76.2 % (39.0-77.0); PLATELET COUNT 222 10^3/UL (140-415); POSITIVE DIFF @See below; RED BLOOD COUNT 3.99 10^6/ul (4.70-6.10)
[2018-02-24 06:21] LABS: ANION GAP 10 (8-16); BLOOD UREA NITROGEN 27 mg/dl (7-20); CALCIUM 9.2 mg/dl (8.4-10.2); CARBON DIOXIDE 21 mmol/L (21-31); CHLORIDE 114 mmol/L (97-110); CREATININE 1.54 mg/dl (0.61-1.24); GLUCOSE 129 mg/dl (70-220); POTASSIUM 3.7 mmol/L (3.5-5.1); SODIUM 141 mmol/L (135-144)
[2018-02-24 06:29] LABS: MAGNESIUM 1.7 mg/dl (1.7-2.5)
[2018-02-24 06:29] LABS: INR 1.04; PROTIME 13.7 Sec (11.9-14.9); PT RATIO 1.1
[2018-02-24 06:31] LABS: PARTIAL THROMBOPLASTIN TIME 44.4 Sec (25.0-35.0)
[2018-02-24] MEDS: PANTOPRAZOLE (EC) 40 MG TAB PO ×2 (07:52→18:49)
[2018-02-24] MEDS: INSULIN ASPART [NOVOLOG] 3 ML PEN SC ×4 (07:52→21:59)
[2018-02-24] MEDS: TAMSULOSIN (SR) 0.4 MG CAP PO (08:37)
[2018-02-24] MEDS: NIFEdipine (XL) 30 MG TAB PO (08:38)
[2018-02-24] MEDS: FERROUS SULFATE (EC) 325 MG TAB PO (08:39)
[2018-02-24] MEDS: LOSARTAN 50 MG TAB PO ×2 (08:39→20:59)
[2018-02-24] MEDS: HEPARIN 5,000 UNIT/0.5 ML VIAL SC ×3 (08:41→21:00)
[2018-02-24] MEDS: CEFEPIME 1GM/50 ML (PMX) 50 ML IVPB ×2 (08:42→20:59)
[2018-02-24] MEDS: ARFORMOTEROL TARTRATE 15MCG/2 ML AMP INH ×2 (08:53→19:25)
[2018-02-24] MEDS: BUDESONIDE (NEB) 0.5MG/2ML AMP INH ×2 (08:53→19:25)
[2018-02-24] MEDS: COLLAGENASE 5 GM (UD JAR) TOP (16:23)
[2018-02-24] MEDS: VANCOMYCIN 1.5 GM in SOD CHLORIDE 0.9% 250 ML IVPB (18:49)
[2018-02-24] MEDS: ATORVASTATIN 80 MG TAB PO (20:58)
[2018-02-24] MEDS: INSULIN GLARGINE [LANTus] (100 UNITS/ML) SYG SC (21:01)
[2018-02-24] MEDS: RANITIDINE 150 MG TAB PO (21:59)
[2018-02-25] MEDS: ACCU-CHEK XX (01:49)
[2018-02-25 06:32] LABS: ADD MAN DIFF? NO
[2018-02-25 06:37] LABS: ABNORMAL IP MESSAGE 1; BASOPHIL # 0.1 10^3/ul (0.0-0.1); BASOPHILS % 0.5 % (0.0-2.0); EOSINOPHILS # 0.1 10^3/ul (0.0-0.5); EOSINOPHILS % 1.3 % (0.0-7.0); HEMOGLOBIN 9.5 g/dl (14.0-18.0); LYMPHOCYTES # 1.8 10^3/ul (0.8-2.9); LYMPHOCYTES % 16.6 % (15.0-51.0); MEAN CORPUSCULAR HEMOGLOBIN 24.7 pg (29.0-33.0); MEAN CORPUSCULAR HGB CONC 30.6 g/dl (32.0-37.0); MEAN CORPUSCULAR VOLUME 80.7 fl (82.0-101.0); MONOCYTE # 0.9 10^3/ul (0.3-0.9); MONOCYTES % 8.3 % (0.0-11.0); NEUTROPHIL # 7.8 10^3/ul (1.6-7.5); NEUTROPHILS % 72.9 % (39.0-77.0); PLATELET COUNT 200 10^3/UL (140-415); POSITIVE DIFF @See below; RED BLOOD COUNT 3.84 10^6/ul (4.70-6.10)
[2018-02-25 06:37] LABS: WHITE BLOOD COUNT 10.6 10^3/ul (4.8-10.8)
[2018-02-25] MEDS: PANTOPRAZOLE (EC) 40 MG TAB PO ×2 (07:00→17:45)
[2018-02-25 07:03] LABS: ANION GAP 10 (8-16); BLOOD UREA NITROGEN 29 mg/dl (7-20); CALCIUM 9.1 mg/dl (8.4-10.2); CARBON DIOXIDE 22 mmol/L (21-31); CHLORIDE 113 mmol/L (97-110); CREATININE 1.54 mg/dl (0.61-1.24); GLUCOSE 149 mg/dl (70-220); POTASSIUM 3.7 mmol/L (3.5-5.1); SODIUM 141 mmol/L (135-144)
[2018-02-25 07:10] LABS: MAGNESIUM 1.7 mg/dl (1.7-2.5)
[2018-02-25 07:10] LABS: PHOSPHORUS 3.6 mg/dl (2.5-4.9)
[2018-02-25] MEDS: CEFEPIME 1GM/50 ML (PMX) 50 ML IVPB ×2 (08:57→21:05)
[2018-02-25] MEDS: TAMSULOSIN (SR) 0.4 MG CAP PO (08:58)
[2018-02-25] MEDS: LOSARTAN 50 MG TAB PO ×2 (08:59→21:09)
[2018-02-25] MEDS: COLLAGENASE 5 GM (UD JAR) TOP (08:59)
[2018-02-25] MEDS: FERROUS SULFATE (EC) 325 MG TAB PO (08:59)
[2018-02-25] MEDS: NIFEdipine (XL) 30 MG TAB PO (08:59)
[2018-02-25] MEDS: BUDESONIDE (NEB) 0.5MG/2ML AMP INH ×2 (09:00→21:20)
[2018-02-25] MEDS: ARFORMOTEROL TARTRATE 15MCG/2 ML AMP INH ×2 (09:00→21:20)
[2018-02-25] MEDS: HEPARIN 5,000 UNIT/0.5 ML VIAL SC ×3 (09:02→21:08)
[2018-02-25] MEDS: INSULIN ASPART [NOVOLOG] 3 ML PEN SC ×4 (09:02→21:17)
[2018-02-25] MEDS: VANCOMYCIN 1.5 GM in SOD CHLORIDE 0.9% 250 ML IVPB (17:46)
[2018-02-25] MEDS: INSULIN GLARGINE [LANTus] (100 UNITS/ML) SYG SC (21:08)
[2018-02-25] MEDS: ATORVASTATIN 80 MG TAB PO (21:10)
[2018-02-25] MEDS: RANITIDINE 150 MG TAB PO (21:10)
[2018-02-26] MEDS: ACCU-CHEK XX (01:58)
[2018-02-26] MEDS: PANTOPRAZOLE (EC) 40 MG TAB PO (06:07)
[2018-02-26] MEDS ORDERED: CEFAZOLIN 1 GM INJ (07:00)
[2018-02-26] MEDS ORDERED: MIDAZOLAM 1 MG/ML 2 ML INJ (07:30)
[2018-02-26] MEDS ORDERED: FENTAnyl 50 MCG/ML VIAL (07:30)
[2018-02-26] MEDS ORDERED: LIDOCAINE 2% (SDV) 5 ML INJ (07:30)
[2018-02-26] MEDS ORDERED: PROPOFOL 20 ML (07:32)
[2018-02-26] MEDS: POLYMYXIN/BACITRACIN 1L IRRIG (07:40)
[2018-02-26] MEDS: LIDOCAINE 1% (MPF) 30 ML INJ (07:40)
[2018-02-26] MEDS ORDERED: DIPHENHYDRAMINE 50 MG INJ IV (08:00)
[2018-02-26] MEDS ORDERED: LABETALOL HCL 20MG INJ IV (08:00)
[2018-02-26] MEDS ORDERED: hydrALAzine 20 MG INJ IV (08:00)
[2018-02-26] MEDS ORDERED: METOCLOPRAMIDE 10 MG INJ IV (08:00)
[2018-02-26] MEDS ORDERED: IPRATROPIUM (NEB) 0.5 MG/2.5 ML AMP HHN (08:00)
[2018-02-26] MEDS ORDERED: HYDROmorphONE 1 MG/5 ML IV SYRINGE IV (08:00)
[2018-02-26] MEDS ORDERED: ONDANSETRON 4 MG INJ IV (08:00)
[2018-02-26] MEDS ORDERED: FENTAnyl 50 MCG/ML VIAL IV (08:00)
[2018-02-26] MEDS: HEPARIN 5,000 UNIT/0.5 ML VIAL SC ×2 (09:00→15:43)
[2018-02-26] MEDS: ARFORMOTEROL TARTRATE 15MCG/2 ML AMP INH (09:00)
[2018-02-26] MEDS: COLLAGENASE 5 GM (UD JAR) TOP (09:00)
[2018-02-26] MEDS: BUDESONIDE (NEB) 0.5MG/2ML AMP INH (09:00)
[2018-02-26] MEDS: CEFEPIME 1GM/50 ML (PMX) 50 ML IVPB (09:16)
[2018-02-26] MEDS: FERROUS SULFATE (EC) 325 MG TAB PO (09:17)
[2018-02-26] MEDS: TAMSULOSIN (SR) 0.4 MG CAP PO (09:17)
[2018-02-26] MEDS: NIFEdipine (XL) 30 MG TAB PO (09:18)
[2018-02-26] MEDS: LOSARTAN 50 MG TAB PO (09:18)
[2018-02-26] MEDS: INSULIN ASPART [NOVOLOG] 3 ML PEN SC ×2 (09:20→13:00)
[2018-02-26 12:45] LABS: ANION GAP 8 (8-16); BLOOD UREA NITROGEN 26 mg/dl (7-20); CALCIUM 9.1 mg/dl (8.4-10.2); CARBON DIOXIDE 23 mmol/L (21-31); CHLORIDE 114 mmol/L (97-110); CREATININE 1.34 mg/dl (0.61-1.24); GLUCOSE 296 mg/dl (70-220); POTASSIUM 4.1 mmol/L (3.5-5.1); SODIUM 141 mmol/L (135-144)
[2018-02-26] MEDS ORDERED: LEVOFLOXACIN 500 MG TAB PO (14:30)
== END 2018-02-26 16:30 | disposition home health service (06) | DRG 857 ==
LOC: MS2 02-21 10:40 → 2NE 02-24 11:35 → E/R 12:21 → TEL 15:25
PROC: 0JBQ0ZZ Excision of Right Foot Subcutaneous Tissue and Fascia, Open Approach (ICD-10-PCS; principal; 2018-02-23 09:47)
PROC: B40F1ZZ Plain Radiography of Right Lower Extremity Arteries using Low Osmolar Contrast (ICD-10-PCS; 2018-02-23 09:47)
DX: T81.4XXA Infection following a procedure, initial encounter (principal); M86.9 Osteomyelitis, unspecified; L03.115 Cellulitis of right lower limb; E11.52 Type 2 diabetes mellitus with diabetic peripheral angiopathy with gangrene; I96 Gangrene, not elsewhere classified; L02.611 Cutaneous abscess of right foot; E11.22 Type 2 diabetes mellitus with diabetic chronic kidney disease; E11.40 Type 2 diabetes mellitus with diabetic neuropathy, unspecified; E11.51 Type 2 diabetes mellitus with diabetic peripheral angiopathy without gangrene; D64.9 Anemia, unspecified; N30.90 Cystitis, unspecified without hematuria; I12.9 Hypertensive chronic kidney disease with stage 1 through stage 4 chronic kidney disease, or unspecified chronic kidney disease; N18.9 Chronic kidney disease, unspecified; I48.91 Unspecified atrial fibrillation; I25.10 Atherosclerotic heart disease of native coronary artery without angina pectoris; K21.9 Gastro-esophageal reflux disease without esophagitis; Z95.1 Presence of aortocoronary bypass graft; E78.5 Hyperlipidemia, unspecified; Z89.411 Acquired absence of right great toe; Z89.421 Acquired absence of other right toe(s); E87.5 Hyperkalemia
CPT/HCPCS: 36246; 36415; 71045; 73630; 75625; 75710; 76937; 80048; 80053; 80202; 81001; 82962; 83605; 83735; 84100; 84484; 85025; 85610; 85730; 87040; 87070; 87081; 87086; 93005; 93306; 93922; 94640; 99285-25

== ENCOUNTER → 2018-09-07 | Outpatient (CLI) | payer MEDICARE, OTHER | END | disposition home or self-care (01) | LOC: LAB 12:07 | DX: M86.8X7 Other osteomyelitis, ankle and foot (principal) | CPT/HCPCS: 73630 ==

== ENCOUNTER → 2018-09-11 | Outpatient (CLI) | payer MEDICARE, OTHER | END | disposition home or self-care (01) | LOC: NUC 11:05 | DX: M86.8X7 Other osteomyelitis, ankle and foot (principal) | CPT/HCPCS: 78315; A9503 ==

== ENCOUNTER → 2018-10-08 | Outpatient (CLI) | payer MEDICARE, OTHER | END | disposition home or self-care (01) | LOC: RAD 10:51 | DX: M86.8X7 Other osteomyelitis, ankle and foot (principal) | CPT/HCPCS: 73630 ==